=== PATIENT | male | born 1945 | race Caucasian/White ===

== ENCOUNTER → 2024-12-21 17:07 | Day surgery (SDC) | payer MEDICARE, OTHER, SELFPAY ==
[2024-12-21] VITALS (13 sets, daily range): BP systolic 110–148; BP diastolic 48–68; BMI 25.6
[2024-12-21 11:07] LABS: % Basophils 0.4 % (0-2); % Eosinophils 0.4 % (0-6); % Immature Granulocytes 0.3 % (0-0.5); % Lymphocytes 9.1 % (20.5-51.1); % Monocytes 5.1 % (1.7-9.3); % Neutrophils 84.7 % (42.2-75.2); Absolute Basophils 0.1 10^3/uL (0-0.2); Absolute Eosinophils 0.1 10^3/uL (0-0.7); Absolute Lymphocytes 1.1 10^3/uL (1.2-3.4); Absolute Monocytes 0.6 10^3/uL (0.1-0.6); Absolute Neutrophils 10.5 10^3/uL (1.4-6.5); Hematocrit 37.8 % (39.0-52.0); Mean Corp Hgb Conc. 34.4 g/dL (33.0-37.0); Mean Corpuscular Hgb 30.2 pg (27.0-31.0); Mean Corpuscular Volume 87.9 fL (80.0-94.0); Mean Platelet Volume 9.2 fL (7.4-10.4); Nucleated Red Blood Cells % 0 % (-); Platelet Count 182 10^3/uL (130-400); Red Cell Dist. Width 12.9 % (11.5-14.5); White Blood Cell Count 12.4 10^3/uL (4.8-10.8)
[2024-12-21 11:20] LABS: ALT (SGPT) 26 U/L (0-50); AST (SGOT) 22 U/L (17-59); Albumin 4.1 g/dl (3.5-5.0); Alkaline Phosphatase 78 U/L (38-126); Blood Urea Nitrogen 30 mg/dl (9-20); Calcium 9.8 mg/dl (8.4-10.2); Carbon Dioxide 21 mmol/L (22-30); Chloride 101 mmol/L (98-107); Estimated Creatinine Clearance 34 ml/min; Glucose 291 mg/dl (70-99); Lipase 174 U/L (23-300); Sodium 133 mmol/L (135-145); Total Bilirubin 0.8 mg/dl (0.2-1.3); Total Protein 6.1 g/dl (6.3-8.2); eGFR 33.95
--- NOTE | 2024-12-21 11:41 | ED.GENMED ---
History of Present Illness
General
Chief Complaint: Abdominal Symptoms
Source: patient
Exam Limitations: none
Time Seen by Provider: 12/21/24 10:47
History of Present Illness
History of Present Illness:
78yoM with history of coronary artery disease s/p PCI, hypertension, hyperlipidemia, insulin-dependent type 2 diabetes, and remote history of prostate cancer currently in remission presenting for evaluation of abdominal pain. Symptoms began around
1 AM this morning and woke him up from sleep. He reports a constant throbbing pain in his left lower quadrant that is nonradiating. He was tossing and turning all night and was unable to get in a comfortable position. He reports associated nausea
and had 2 episodes of vomiting. He is questioning whether his symptoms are related to Trulicity which he restarted about 9 days ago. He denies any testicular pain, urinary symptoms, fevers, chills, chest pain, shortness of breath, constipation,
diarrhea. Previous abdominal surgeries include a right inguinal hernia repair. He has a remote history of kidney stones 25 years ago.
Past History
Past History
ED Past Medical History: Cancer (Prostate), HTN, Hypercholesterolemia and IDDM
ED Past Surgical History: Cardiac (stents)
Social History
Tobacco: Non-smoker
Alcohol: Occasional
Personal:
Living: with family
Employment: Retired
Phy Exam
Physical Exam
Physical Exam:
Appears uncomfortable, non-toxic
General Physical Exam
General Presentation: well appearing and mild distress
General Skin: warm and dry
General Habitus: normal
General Mental: alert
ENT Exam
ENT Exam: normocephalic
Cardiovascular Exam
Cardiovascular Exam: regular rate/rhythm
Pulmonary Exam
Pulmonary Exam: lungs clear, no respiratory distress, no rales, no crackles and no rhonchi
Gastrointestinal Exam
Gastrointestinal Exam: non tender, soft, non distended, no cva tenderness and other (No abdominal or CVA tenderness)
Neurological Exam
Neurological Exam: alert
[place] Coma Scale
Eye Opening: Spontaneous
Verbal Response: Oriented
Motor Response: Obeys Commands
GCS Total Score: 15
Skin Exam
Skin Exam: normal color and warm/dry
Psychiatric Exam
Psychiatric Exam: normal mood/affect
Course
Orders/Labs/Results
Orders:
Orders
12/21/24 10:59
Complete Blood Count/With Diff Urgent
Comprehensive Metabolic Panel Urgent
Lipase Urgent
12/21/24 11:36
CT Abd/pel Without Iv Or Oral Urgent
Comment:
Reason For Exam: LLQ pain, vomiting
0.9% Sodium Chloride 1000 ml [Nss] 1,000 ml IV BOLUS
HYDROmorphone [Dilaudid] 0.5 mg IV NOW STA
12/21/24 11:41
Ondansetron Injectable [Zofran] 4 mg IV NOW STA
12/21/24 11:52
Urinalysis Reflex To Culture Urgent
Date Specimen was Collected: 12/21/24
Time Specimen was Collected: 11:51
Urine Microscopic Reflex Cult Urgent
12/21/24 13:48
HYDROmorphone [Dilaudid] 0.5 mg IV NOW STA
12/21/24 15:24
0.9% Sodium Chloride 500 ml [Nss] 500 ml IV BOLUS
12/21/24 16:07
Phenylephrine HCl/0.9% NaCl [Tomas-Synephrine] 1,000 mcg .ROUTE .STK-MED ONE
Propofol [Diprivan] 20 ml .ROUTE .STK-MED
ePHEDrine SULFATE [Emerphed] 50 mg .ROUTE .STK-MED ONE
12/21/24 16:08
Fentanyl Citrate/Pf [Sublimaze] 100 mcg .ROUTE .STK-MED ONE
Lidocaine 2% [Xylocaine 2% Mdv] 20 ml .ROUTE .STK-MED ONE
Midazolam HCl [Versed] 2 mg .ROUTE .STK-MED ONE
12/21/24 16:36
Dextrose 50%-Water [Dextrose 50% Syringe] 12.5 grams IV PROCEDURE-PRN PRN
HYDROmorphone [Dilaudid] 0.25 mg IV PACU-Q5MPRN PRN
HYDROmorphone [Dilaudid] 0.5 mg IV PACU-Q5MPRN PRN
Insulin Aspart [NOVOLOG vial] See Protocol SC PROCEDURE- Q2H PRN PRN
Meperidine [Demerol] 12.5 mg IV PACU-Q5MPRN PRN
Ondansetron Injectable [Zofran] 4 mg IV PACU-ONCEPRN PRN
Prochlorperazine [Compazine] 5 mg IV PACU-ONCEPRN PRN
Bedside Glucose Monitoring As Directed
Frequency: Q2H
Additional Instructions:: UNTIL PATIENT LEAVES PROCEDURE AREA
Notify MD As Directed
Notify physician if: for SDS patients with known or suspected sleep obstructive sleep apnea, monitor in the
PACU.
Notify MD for any apneic/desaturation episodes
O2 Therapy [RESP] Urgent
Titrate/Wean O2 to maintain O2 sat greater than (%): 92
Special Instructions: -Provide supplemental oxygen to achieve O2 sat of 92% or greater.
-After 15 min, may wean O2 and discontinue if patient is able to maintain O2 sat of 92%
or greater during recovery period.
If patient is a discharge home, without oxygen therapy, notify anestheiologist if
unable to maintain O2 SAT of 92% or greater on room air for MD clearance.
12/21/24 16:45
NSS for PACU (100 ml/hr) 0.9% Sodium Chloride 1000 ml [Nss] 1,000 ml IV PER PROTOCOL
Abnormal Lab Results
12/21/24 12/21/24
10:59 11:52
WBC 12.4 H 10^3/uL
(4.8-10.8)
RBC 4.30 L 10^6/uL
(4.70-6.10)
Hct 37.8 L %
(39.0-52.0)
Absolute Neuts (auto) 10.5 H 10^3/uL
(1.4-6.5)
Absolute Lymphs (auto) 1.1 L 10^3/uL
(1.2-3.4)
Neutrophils % 84.7 H %
(42.2-75.2)
Lymphocytes % 9.1 L %
(20.5-51.1)
Sodium 133 L mmol/L
(135-145)
Carbon Dioxide 21 L mmol/L
(22-30)
BUN 30 H mg/dl
(9-20)
Creatinine 2.0 H mg/dL
(0.7-1.3)
Glucose 291 H mg/dl
(70-99)
Total Protein 6.1 L g/dl
(6.3-8.2)
Urine Ketones 3+ A
(Negative)
Ur Occult Blood Reflex 3+ A
(Negative)
Urine Glucose 4+ A
(Negative)
Urine Albumin (Reflex) 3+ A
(Neg - Trace)
12/21/24 10:59
12/21/24 10:59
Vital Signs
Initial and Last Documented VS:
Initial Vital Signs
Temp Pulse Resp BP Pulse Ox
98.0 F 61 16 133/58 100
12/21/24 10:35 12/21/24 10:35 12/21/24 10:35 12/21/24 10:35 12/21/24 10:35
Last Documented Vital Signs
Temp Pulse Resp BP Pulse Ox
98.0 F 58 16 142/66 98
12/21/24 10:35 12/21/24 11:55 12/21/24 11:55 12/21/24 16:00 12/21/24 16:00
MDM/Problems Addressed
Differential Diagnosis Includes:
78yoM here with LLQ pain that woke him up from sleep last night. Associated with n/v. VSS. He appears uncomfortable but is nontoxic. No reproducible abdominal or CVA tenderness. Differential diagnosis includes but is not limited to: Kidney stone,
diverticulitis, colitis, musculoskeletal
Initial ED plan: Check abdominal labs, UA, and CT abdomen without contrast. IV Dilaudid, Zofran, and fluid bolus for symptoms.
*Critical Care Note
Total Time (30-74mins, 75-104mins- exclusive of procedures): Not Applicable
Update Note
Update Note:
CT shows a 6 mm proximal left ureteral stone with moderate hydronephrosis. There is also a cecal mass seen incidentally for which colonoscopy is recommended. Patient and informed of this finding and copy of radiology report provided. Last
colonoscopy was 4 years ago which showed some polyps and it was recommended that he have a repeat colonoscopy in 5 years. Creatinine 2.0, up from 1.2 in 2022 no signs of infection on urinalysis. Patient requiring multiple doses of Dilaudid for
pain control. Case was discussed with urologist. Urology to take patient to the OR this evening. Patient transported to the OR in stable condition.
ED Attending Note
-
Portions of this chart may have been created with voice recognition software.� Occasional wrong word or��sound alike� substitutions may have occurred due to the inherent limitations of voice recognition software.
Discharge Plan
Departure
Patient Disposition: OR
Date of Disposition: 12/21/24
Time of Disposition: 16:02
Presentation/result/management discussed w/ accepting /DO: Dr. Guzman
Discharge Problem:
Calculus of proximal left ureter, Acute kidney injury, Mass of cecum
Prescriptions:
No Action
cyanocobalamin (vitamin B-12) 1,000 mcg Tablet
1,000 mcg PO HS
aspirin 81 mg Tablet,Delayed Release (Dr/Ec)
81 mg PO DAILY
carvedilol 3.125 mg Tablet
3.125 mg PO BID
metformin 1,000 mg Tablet
1,000 mg PO BID@0800,1700
lisinopril 2.5 mg Tablet
2.5 mg PO DAILY
glipizide 5 mg Tablet
2.5 mg PO BID@0800,1700
rosuvastatin 40 mg Tablet
40 mg PO HS
bupropion HCl 300 mg Tablet Extended Release 24 Hr
300 mg PO DAILYPRN PRN (Reason: depression)
Rx Instructions:
Per patient he takes when he feels like he needs it maybe twice a week
insulin aspart U-100 [Novolog FlexPen U-100 Insulin] 100 unit/mL (3 mL) Insulin Pen
8 unit SC BID@1200,1800
insulin glargine [Lantus Solostar U-100 Insulin] 100 unit/mL (3 mL) Insulin Pen
18 unit SC HS
acetaminophen [acetaminophen] 325 mg tablet
650 mg PO Q4HPRN PRN (Reason: mild pain) Qty: 1 0RF
oxycodone 5 mg tablet
5 mg PO Q4HPRN PRN (Reason: breakthrough/severe pain) Qty: 10 0RF
ibuprofen 200 mg tablet
400 - 600 mg PO Q6HPRN PRN (Reason: moderate pain) Qty: 1 0RF
Referrals:
Patti Lorenz DO [Family Provider] -
Interventions
Interventions:
*Risk Screen - Suicide Last Done: 12/21/24 11:08
*General Assessment Last Done: 12/21/24 11:08
*Neglect/Abuse Screening Last Done: 12/21/24 11:08
*ED- Fall Risk Assessment Last Done: 12/21/24 11:08
*ED COVID-19 Vaccine History Last Done: 12/21/24 11:08
DZ-Abxzdd-Ipciziryxf Assessment Last Done: 12/21/24 11:08
Discharge Date and Time
Print Language: PUERTO RICAN
[2024-12-21] MEDS: ZOFRAN 4 MG IV ×2 (11:47→18:31)
[2024-12-21] MEDS: NSS 1000 IV (11:47)
[2024-12-21] MEDS: DILAUDID 0.5 MG IV ×2 (11:47→13:56)
[2024-12-21 11:59] LABS: Urine Albumin 3+ (Neg - Trace); Urine Bilirubin Negative (Negative); Urine Character Clear (Clear); Urine Color Yellow; Urine Glucose 4+ (Negative); Urine Ketone 3+ (Negative); Urine Leukocyte Negative (Negative); Urine Nitrite Negative (Negative); Urine Occult Blood 3+ (Negative); Urine Urobilinogen Negative (Neg - 1+)
[2024-12-21 12:42] LABS: Urine Red Blood Cell 0-2 /HPF (0-2); Urine Squamous Cell 0-2 /LPF (Few); Urine White Cell 0-2 /HPF (0-5)
[2024-12-21] MEDS: NSS 500 IV (15:47)
--- NOTE | 2024-12-21 16:41 | PHANOTE ---
Precyse(12/21/24)- [facility], and did not bring bottles/his medication list. Unable to confirm the dosages of his medications, as the extent to which he remembers is that they are 'small'. No current records to go from,
as last eCW visit was from 2022.
--- NOTE | 2024-12-21 16:47 | HP.FOC2 ---
Focused History & Physical
Chief Complaint
HPI:
Chief Complaint: L flank pain
HPI / Indication for Planned Procedure:
78M with L flank pain, nausea, vomiting
Found to have CHRISTIAN and 6mm L obstructing ureteral stone
No fevers or signs of sepsis
Relevant Past Medical History: Diabetes and Other (kidney stones)
Relevant Social History: Negative
Relevant Family History: Negative
Relevant Past Surgical History: Negative
Review of Systems
Review of Pertinent Systems: All Systems Negative
Medication
See Medication form for detailed medications: Yes
Medication List (including Herbals & OTC):
aspirin 81 mg tablet,delayed release 81 mg PO DAILY Blood clot prevention/tx 12/01/22
bupropion HCl 300 mg 24 hr tablet, extended release 300 mg PO DAILYPRN PRN depression 12/01/22
carvedilol 3.125 mg tablet 3.125 mg PO BID Blood pressure 12/01/22
cyanocobalamin (vitamin B-12) 1,000 mcg tablet 1,000 mcg PO HS Supplement 12/01/22
lisinopril 2.5 mg tablet 2.5 mg PO DAILY Blood pressure 12/01/22
metformin 1,000 mg tablet 1,000 mg PO DAILY Diabetes 12/01/22
rosuvastatin 40 mg tablet 40 mg PO HS High cholesterol 12/01/22
insulin aspart U-100 100 unit/mL (3 mL) subcutaneous pen (Novolog FlexPen U-100 Insulin aspart) 10 - 12 sliding scale dose SC AC 05/24/23
insulin glargine 100 unit/mL (3 mL) subcutaneous pen (Lantus Solostar U-100 Insulin) 10 - 12 unit SC HS 05/24/23
dulaglutide 3 mg/0.5 mL subcutaneous pen injector (Trulicity) 3 mg SC WE 12/21/24
ibuprofen 200 mg tablet 400 mg PO Q6HPRN PRN moderate pain 12/21/24
Medications Reviewed: Yes
Allergies and Reactions
Patient has Allergies: No
Noted Allergies and Reactions:
Allergy/AdvReac Type Severity Reaction Status Date / Time
No Known Allergies Allergy Verified 05/27/23 06:23
Pertinent Physical Exam
All Other Systems: Negative
Head/Neck: Normal
Lungs: Normal
Diagnosis / Assessment
78M with L obstructing ureteral stone, CHRISTIAN
- NPO
- OR for L ureteroscopy, laser, stent
- Ceftriaxone ppx
- Plan for same day surgery discharge
Plan / Procedure
- NPO
- OR for L ureteroscopy, laser, stent
- Ceftriaxone ppx
- Plan for same day surgery discharge
Anesthesia/Sedation to be done by Anesthesia Provider: Yes
--- NOTE | 2024-12-21 17:52 | W.IMMPOSTOP ---
Surgical Immed Post Op Note
-
Primary Surgeon: Peffer
Assisting Surgeon: -
Pre-op Diagnosis: L ureteral stone
Post-op Diagnosis: same
Procedure Performed: L ureteroscopy, laser, stone removal, stent
Anesthesia Type: general
Specimen / Cultures:
Estimated Blood Loss: 1cc
Complications: none
Operative Findings: stent on string
[2024-12-21] MEDS: ROXICODONE 5 MG PO (19:02)
== END ==
LOC: EMR 10:31 → SDS 17:07
PROVIDERS: Physician Assistant; ATTENDING PHYSICIAN Urology; EMERGENCY PHYSICIAN Emergency Medicine; FAMILY PHYSICIAN Family Medicine
DX: N20.1 Calculus of ureter (principal)
CPT/HCPCS: 52356; 74018; 74176; 76000; 80053; 81003; 81015; 82365; 83690; 85025; 96361; 96374; 96375; 96376; 99284; A4300; C1769; C2617

== ENCOUNTER 2025-02-12 06:22 | Day surgery (SDC) | payer MEDICARE, SELFPAY ==
[2025-02-12 09:07] LABS: Glucose - Point of Care 222 mg/dl (70-99)
== END 2025-02-12 12:41 | disposition home or self-care (01) ==
LOC: GI 06:22
PROVIDERS: ATTENDING PHYSICIAN Surgery
DX: R93.3 Abnormal findings on diagnostic imaging of other parts of digestive tract (principal); K64.8 Other hemorrhoids; K57.30 Diverticulosis of large intestine without perforation or abscess without bleeding; D49.0 Neoplasm of unspecified behavior of digestive system; D12.3 Benign neoplasm of transverse colon; D12.0 Benign neoplasm of cecum
CPT/HCPCS: 45385; 45380; 88305; 82962

== ENCOUNTER 2025-04-02 06:13 | Day surgery (SDC) | payer MEDICARE, SELFPAY ==
[2025-04-02] VITALS (7 sets, daily range): BP systolic 90–129; BP diastolic 44–75; BMI 25.4
[2025-04-02 10:54] LABS: Glucose - Point of Care 194 mg/dl (70-99)
[2025-04-02 13:08] LABS: Glucose - Point of Care 218 mg/dl (70-99)
[2025-04-02 15:59] LABS: Glucose - Point of Care 218 mg/dl (70-99)
== END 2025-04-02 16:30 | disposition home or self-care (01) ==
LOC: GI 06:13
PROVIDERS: ATTENDING PHYSICIAN Internal Medicine Gastroenterology
DX: D12.0 Benign neoplasm of cecum (principal); K64.0 First degree hemorrhoids; D12.3 Benign neoplasm of transverse colon
CPT/HCPCS: 45390; 45385; 82962; 88305